=== PATIENT | female | born 1945 | race Caucasian/White ===

== ENCOUNTER 2021-10-02 00:24 | Emergency (ER) | payer MEDICARE, OTHER ==
[~2021-10-02 00:24] MED LIST: CARDIZEM CD180 MG PO; DECADRON6 MG PO; DILTIAZEM 24HR180 M1 PO; ELIQUIS5 MG PO; FLUZONE QU60 MCG/015 IM; GLUCOPHAGE XR500 MG PO; GLUCOPHAGE500 MG PO; K-DUR TAB 10 M10 MEQ PO; KEFLEX CAP 500500 MG PO; LIPITOR TAB 2020 MG PO; NITROGLYCERIN0.4 MG SL; NITROSTAT0.4 MG SL; ONDANSETRON ODT4 MG PO; POTASSIUM CHLO10 ME2 PO; PRINIVIL20 MG PO; PROPAFENONE HC150 MG PO; RYTHMOL TAB 15150 MG PO; SYNTHROID125 MCG PO; ZOFRAN ODT 4 MG4 MG PO
== END 2021-10-02 05:05 ==
LOC: ER1 00:24
DX: S52.611A Displaced fracture of right ulna styloid process, initial encounter for closed fracture (principal); S52.501A Unspecified fracture of the lower end of right radius, initial encounter for closed fracture; W19.XXXA Unspecified fall, initial encounter
CPT/HCPCS: 29125; 70450; 73090; 73110; 99284